=== PATIENT | female | born 1935 | race African-American/Black ===

== ENCOUNTER 2017-12-24 01:09 | Emergency (ER) | payer MEDICARE, OTHER ==
[~2017-12-24] VITALS: Ht 154.9 cm; Wt 59.0 kg
[~2017-12-24 01:09] MED LIST: ATEN-42 PO; LEVO25TA2 PO
[2017-12-24 02:02] LABS: BASOPHILS % 0.5 % (0.0-2.0); EOSINOPHILS % 1.2 % (0.0-5.0); HEMATOCRIT. 35.7 % (36.0-48.0); LYMPHOCYTES % 35.1 % (20.0-50.0); MEAN CORPUSCULAR HEMOGLOBIN 27.5 pg (28.0-32.0); MEAN CORPUSCULAR VOLUME 82.1 fL (81.0-99.0); MEAN PLATELET VOLUME 7.4 fl (7.4-10.4); MONOCYTES % 9.1 % (2.0-8.0); NEUTROPHILS % 54.1 % (40.0-76.0); PLATELET 224 x1000/uL (130-400); RED BLOOD CELL COUNT 4.35 mill/uL (4.2-5.4); RED CELL DISTRIBUTION WIDTH 14.3 % (11.6-14.6)
[2017-12-24 02:05] LABS: CHLORIDE 107 mEq/L (98-107)
[2017-12-24 02:34] LABS: PARTIAL THROMBOPLASTIN TIME 24.1 sec (23.4-31.0); PROTHROMBIN TIME 10.5 sec (9.1-11.1)
[2017-12-24 05:45] VITALS: BP 158/77
== END 2017-12-24 06:27 | disposition home or self-care (01) ==
LOC: ER 01:22 → CANBEDREQ 08:07
DX: R00.2 Palpitations (principal); R42 Dizziness and giddiness; I10 Essential (primary) hypertension; E03.9 Hypothyroidism, unspecified; Z88.0 Allergy status to penicillin
CPT/HCPCS: 36415; 71045; 80053; 84439; 84443; 84484; 85025; 85610; 85730; 93005; 99285

== ENCOUNTER 2021-12-06 18:06 | Emergency (ER) | payer BC, MEDICARE, OTHER ==
[~2021-12-06] VITALS: Ht 154.9 cm; Wt 55.0 kg
[2021-12-06 19:37] VITALS: BP 152/66
[2021-12-06 19:41] LABS: BASOPHILS % 0.3 % (0.0-2.0); EOSINOPHILS % 0.4 % (0.0-5.0); HEMATOCRIT. 37.5 % (36.0-48.0); HEMOGLOBIN. 12.3 g/dL (12.0-16.0); LYMPHOCYTES % 25.7 % (20.0-50.0); MEAN CORPUSCULAR HEMOGLOBIN 27.4 pg (28.0-32.0); MEAN CORPUSCULAR VOLUME 83.4 fL (81.0-99.0); MEAN PLATELET VOLUME 7.5 fl (7.4-10.4); MONOCYTES % 10.1 % (2.0-8.0); NEUTROPHILS % 63.5 % (40.0-76.0); PLATELET 279 x1000/uL (130-400)
[2021-12-06 19:50] LABS: CHLORIDE 101 mEq/L (98-107)
[2021-12-06 19:51] LABS: PROTHROMBIN TIME 10.4 sec (9.6-11.0)
[2021-12-06] MEDS ORDERED: POTASSIUM CHLORIDE 20MEQ TABLET SR PO ONE (20:00)
[2021-12-06 20:07] LABS: T4 FREE 1.23 ng/dL (0.76-1.46)
[2021-12-06 20:26] LABS: CLARITY URINE CLEAR (CLEAR); COLOR URINE YELLOW (YELLOW); KETONES URINE NEGATIVE (NEGATIVE); LEUKOCYTE ESTERASE URINE NEGATIVE (NEGATIVE); NITRITE URINE NEGATIVE (NEGATIVE); OCCULT BLOOD URINE NEGATIVE (NEGATIVE); PROTEIN URINE NEGATIVE (NEGATIVE); SPECIFIC GRAVITY URINE 1.006 (1.005-1.030)
[2021-12-06] MEDS ORDERED: MULT-1146 MT (20:36)
== END 2021-12-06 21:23 | disposition home or self-care (01) ==
LOC: ER 18:06
DX: R00.2 Palpitations (principal); E87.6 Hypokalemia; I10 Essential (primary) hypertension; E03.9 Hypothyroidism, unspecified
CPT/HCPCS: 36415; 71045; 80053; 81003; 83735; 83880; 84439; 84443; 84481; 84484; 85025; 93005; 99285

== ENCOUNTER 2023-06-16 16:12 | Emergency (ER) | payer MEDICARE ==
[~2023-06-16] VITALS: Ht 162.6 cm; Wt 57.0 kg
[~2023-06-16 16:12] MED LIST changes: +MULT-1146 MT
[2023-06-16 16:17] VITALS: O2SAT 100
[2023-06-16 20:13] VITALS: BP 103/67; PULSE 60; RESP 15; TEMP 97.6
== END 2023-06-16 20:40 | disposition home or self-care (01) ==
LOC: ER 16:12
DX: I10 Essential (primary) hypertension (principal); T50.905A Adverse effect of unspecified drugs, medicaments and biological substances, initial encounter; F41.9 Anxiety disorder, unspecified; E03.9 Hypothyroidism, unspecified; Z88.0 Allergy status to penicillin; Y92.89 Other specified places as the place of occurrence of the external cause
CPT/HCPCS: 99283